=== PATIENT | female | born 1980 | race Caucasian/White ===

== ENCOUNTER 2023-01-11 18:13 | Emergency (ER) | payer OTHER ==
[~2023-01-11] VITALS: Ht 167.6 cm; Wt 84.9 kg
[~2023-01-11 18:13] MED LIST: IBUPROFEN600 MG; MULTI VITAMIN1 EACH
[2023-01-11 19:50] VITALS: BP 118/95
== END 2023-01-11 19:50 | disposition home or self-care (01) ==
LOC: ED 18:13
DX: S16.1XXA Strain of muscle, fascia and tendon at neck level, initial encounter (principal); S50.12XA Contusion of left forearm, initial encounter; V43.52XA Car driver injured in collision with other type car in traffic accident, initial encounter; F17.200 Nicotine dependence, unspecified, uncomplicated
CPT/HCPCS: 70450; 72125; 73090; 99284-25

== ENCOUNTER 2024-07-27 00:26 | Emergency (ER) | payer SELFPAY ==
[~2024-07-27] VITALS: Ht 167.6 cm; Wt 88.9 kg
[2024-07-27] MEDS ORDERED: DOXYCYCLINE HYCLATE 100 MG HOME.PACK PO ONE (01:30)
[2024-07-27] MEDS ORDERED: DIPHTH,PERTUSS(ACELL),TET VAC 0.5 ML SYRINGE IM ONE (01:30)
[2024-07-27 01:45] VITALS: BP 135/91
== END 2024-07-27 01:46 | disposition home or self-care (01) ==
LOC: ED 00:26
DX: S80.862A Insect bite (nonvenomous), left lower leg, initial encounter (principal); L08.9 Local infection of the skin and subcutaneous tissue, unspecified; F17.200 Nicotine dependence, unspecified, uncomplicated; W57.XXXA Bitten or stung by nonvenomous insect and other nonvenomous arthropods, initial encounter
CPT/HCPCS: 90715; A9270

== ENCOUNTER 2024-08-14 18:42 | Emergency (ER) | payer SELFPAY ==
[~2024-08-14] VITALS: Ht 160 cm; Wt 89.5 kg
--- OUTSIDE RECORDS SUMMARY | 2024-08-14 18:48 | XMS ---
PreManage Notification: LUCY ROSENBERG Security Product Coordinator Events No recent Security Events currently on file CRITERIA MET - [facility] - 2 Visits in 30 Days CARE PROVIDERS There are no care providers on record at this time. Rosa has no Care Guidelines for this patient. [facility] (12 MO.) [facility] NOTE: Visits indicate total known visits. ED/C VISIT TRACKING (12 MO.) [facility] COMPLAINT: - WOUND 07/27/2024 00:27 [facility] [place] TYPE: Emergency COMPLAINT: - WOUND CARE DIAGNOSES: - Bitten or stung by nonvenomous insect and other nonvenomous arthropods, initial encounter - Insect bite (nonvenomous), left lower leg, initial encounter - Local infection of the skin and subcutaneous tissue, unspecified - Nicotine dependence, unspecified, uncomplicated - Unspecified open wound, left lower leg, initial encounter INPATIENT VISIT TRACKING (12 MO.) No inpatient visits to display in this time frame [email or web address]
[2024-08-14 20:41] LABS: HEMATOCRIT 38.9 % (35.0-50.0); HEMOGLOBIN 13.1 g/dL (12.0-18.0); MCH 30.4 (27-36); MCHC 33.7 g/dl (30-36); MCV 89.9 fl (81-99); RBC 4.33 M/ul (4.3-5.7); RDW 12.9 (10.5-15.0)
[2024-08-14 20:52] LABS: BASOPHILS, MANUAL DIFF 1; LYMPHOCYTES, MANUAL DIFF 27; MONOCYTES, MANUAL DIFF 7; NEUTROPHILS, MANUAL DIFF 65
[2024-08-14 20:53] LABS: PLATELET COUNT 177 K/uL (140-440)
[2024-08-14] MEDS ORDERED: HIBICLENS118 ML TOP (20:58)
[2024-08-14] MEDS ORDERED: HYDROCODON-ACE1 EA10 PO (20:58)
[2024-08-14] MEDS ORDERED: BACTRIM DS TAB1 EACH PO (20:58)
[2024-08-14] MEDS ORDERED: TRIMETHOPRIM/SULFAMETHOXAZOLE 1 EA HOME.PACK PO ONE (21:00)
[2024-08-14] MEDS ORDERED: HYDROCODONE BIT/ACETAMINOPHEN 5/325 MG 1 TAB HOME.PACK PO ONE (21:00)
[2024-08-14] MEDS ORDERED: DOXYCYCLINE HYCLATE 100 MG HOME.PACK PO ONE (21:00)
[2024-08-14 23:17] VITALS: BP 148/93
== END 2024-08-14 22:20 | disposition home or self-care (01) ==
LOC: ED 18:42
PROVIDERS: Family Medicine
DX: L03.116 Cellulitis of left lower limb (principal); F17.200 Nicotine dependence, unspecified, uncomplicated
CPT/HCPCS: 36415; 85025; 99283; A9270

== ENCOUNTER 2024-09-30 13:07 | Emergency (ER) | payer OTHER ==
[~2024-09-30] VITALS: Ht 160 cm; Wt 4.0 kg
[~2024-09-30 13:07] MED LIST changes: +BACTRIM DS TAB1 EACH PO; +HIBICLENS118 ML TOP; +HYDROCODON-ACE1 EA10 PO
[2024-09-30] MEDS ORDERED: DIFLUCAN200 MG PO (14:25)
[2024-09-30] MEDS ORDERED: DOXYCYCLINE HY100 MG PO (14:25)
[2024-09-30 14:45] VITALS: BP 147/95
== END 2024-09-30 14:46 | disposition home or self-care (01) ==
LOC: ED 13:07
DX: L03.116 Cellulitis of left lower limb (principal)
CPT/HCPCS: 99283